=== PATIENT | female | born 1960 | race African-American/Black ===

== ENCOUNTER 2018-05-13 23:48 | Emergency (ER) | payer OTHER ==
[~2018-05-13] VITALS: Ht 170.2 cm; Wt 86.2 kg
[2018-05-14 00:21] VITALS: BP 127/87
--- NOTE | 2018-05-14 00:23 | NUR ---
ER Nurse Note: Pt BIBA from home c/o of rectal bleed and constipation since 05/12. Per pt, pt took enema eariler today, did not help. Pt a&ox4, VSS. Abdomen soft, round. Abd pain in the lower quadrants when palpated and with movement. Bowel sounds heard in quadrants. Will continue to montior.
--- NOTE | 2018-05-14 00:38 | Emergency Room Report ---
History of Present Illness General Chief Complaint: Gastrointestinal Illness Present Illness HPI Patient 57-year-old female with a history of oropharyngeal cancer status post radiation. Patient recently been having increased constipation and difficulty with stools. Patient had taken an enema and subsequently had increased bleeding. Patient had recently been on codeine due to increased discomfort to the area of radiation treatment. Allergies: Coded Allergies: No Known Allergies (Unverified , 05/13/18) Patient History Past Medical History: see triage record Last Menstrual Period: a decade ago Now: No Reviewed Nursing Documentation: PMH: Agreed; PSxH: Agreed Review of Systems All Other Systems: negative except mentioned in HPI Physical Exam Vital Signs Date Time Temp Pulse Resp B/P (MAP) Pulse Ox O2 Delivery O2 Flow Rate FiO2 05/13/18 23:45 98.2 86 18 127/87 98 Room Air Sp02 EP Interpretation: reviewed, normal General Appearance: normal inspection, well appearing, no apparent distress, alert, GCS 15 Head: atraumatic ENT: hearing grossly normal, other - 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 Neck: normal inspection, full range of motion, supple, no bony tend Respiratory: normal inspection, lungs clear, normal breath sounds, no respiratory distress, no retraction, no wheezing Cardiovascular #1: regular rate, rhythm, no edema Gastrointestinal: normal inspection, normal bowel sounds, non tender, soft, no guarding, no hernia Genitourinary: no CVA tenderness Musculoskeletal: normal inspection, back normal, normal range of motion Neurologic: normal inspection, alert, oriented x3, responsive, other - 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 Differential diagnosis include was not limited to foreign body, obstruction among others. Patient was noted to have prior history of cancer. She is given and along the emergency department. Patient was noted to have improvement in her symptoms and able to have a bowel movement in emergency department. Patient appears to be stable for Outpatient follow-up. Patient was advised to return if she had any worsening condition or other concerns. She was advised not to use her codeine- containing medications if these are making her constipated. Labs Test 05/14/18 00:35 White Blood Count 10.6 K/UL (4.8-10.8) Red Blood Count 4.45 M/UL (4.20-5.40) Hemoglobin 11.3 G/DL (12.0-16.0) Hematocrit 34.5 % (37.0-47.0) Mean Corpuscular Volume 77 FL (80-99) Mean Corpuscular Hemoglobin 25.5 PG (27.0-31.0) Mean Corpuscular Hemoglobin Concent 32.9 G/DL (32.0-36.0) Red Cell Distribution Width 15.1 % (11.6-14.8) Platelet Count 317 K/UL (150-450) Mean Platelet Volume 6.9 FL (6.5-10.1) Neutrophils (%) (Auto) % (45.0-75.0) Lymphocytes (%) (Auto) % (20.0-45.0) Monocytes (%) (Auto) % (1.0-10.0) Eosinophils (%) (Auto) % (0.0-3.0) Basophils (%) (Auto) % (0.0-2.0) Prothrombin Time 11.2 SEC (9.30-11.50) Prothromb Time International Ratio 1.1 (0.9-1.1) Activated Partial Thromboplast Time 28 SEC (23-33) Sodium Level 137 MMOL/L (136-145) Potassium Level 3.2 MMOL/L (3.5-5.1) Chloride Level 93 MMOL/L (98-107) Carbon Dioxide Level 35 MMOL/L (21-32) Anion Gap 9 mmol/L (5-15) Blood Urea Nitrogen 23 mg/dL (7-18) Creatinine 1.4 MG/DL (0.55-1.30) Estimat Glomerular Filtration Rate 46.9 mL/min (>60) Glucose Level 120 MG/DL (74-106) Calcium Level 9.9 MG/DL (8.5-10.1) Total Bilirubin 0.6 MG/DL (0.2-1.0) Aspartate Amino Transf (AST/SGOT) 49 U/L (15-37) Alanine Aminotransferase (ALT/SGPT) 64 U/L (12-78) Alkaline Phosphatase 73 U/L (46-116) Troponin I 0.000 ng/mL (0.000-0.056) Total Protein 7.7 G/DL (6.4-8.2) Albumin 3.6 G/DL (3.4-5.0) Globulin 4.1 g/dL Albumin/Globulin Ratio 0.9 (1.0-2.7) Last Vital Signs Date Time Temp Pulse Resp B/P (MAP) Pulse Ox O2 Delivery O2 Flow Rate FiO2 05/14/18 00:21 86 18 Room Air 05/14/18 00:21 98.2 127/87 98 Status: improved Disposition: HOME, SELF-CARE Condition: Stable Marlo Nichole MD May 14, 2018 00:38
[2018-05-14 00:54] LABS: HEMATOCRIT 34.5 % (37.0-47.0); HEMOGLOBIN 11.3 G/DL (12.0-16.0); MEAN CORPUSCULAR VOLUME 77 FL (80-99); PLATELET COUNT 317 K/UL (150-450); RED BLOOD COUNT 4.45 M/UL (4.20-5.40); RED CELL DISTRIBUTION WIDTH 15.1 % (11.6-14.8); WHITE BLOOD COUNT 10.6 K/UL (4.8-10.8)
[2018-05-14 01:02] LABS: ANION GAP 9 mmol/L (5-15); BLOOD UREA NITROGEN 23 mg/dL (7-18); CALCIUM 9.9 MG/DL (8.5-10.1); CARBON DIOXIDE 35 MMOL/L (21-32); CHLORIDE 93 MMOL/L (98-107); CREATININE 1.4 MG/DL (0.55-1.30); POTASSIUM 3.2 MMOL/L (3.5-5.1); SODIUM 137 MMOL/L (136-145)
[2018-05-14 01:09] LABS: INR 1.1 (0.9-1.1)
[2018-05-14 01:13] LABS: ALANINE AMINOTRANSFERASE 64 U/L (12-78); ALBUMIN 3.6 G/DL (3.4-5.0); ALBUMIN/GLOBULIN RATIO 0.9 (1.0-2.7); ALKALINE PHOSPHATASE 73 U/L (46-116); ASPARTATE AMINO TRANSFERASE 49 U/L (15-37); BILIRUBIN,TOTAL 0.6 MG/DL (0.2-1.0)
--- NOTE | 2018-05-14 02:00 | NUR ---
ER Nurse Note: Pt has abd pain, no BM. Pt a7Ox4, VSS, no signs of distress. Pt calm, cooperative. All orders completed per ERMD orders. Awaiting results; will continue to montior.
[2018-05-14 02:10] VITALS: BP 132/84
[2018-05-14] MEDS ORDERED: Fleet's Mineral Oil Enema RECTAL ONE (02:45)
[2018-05-14 04:53] VITALS: BP 122/82
--- NOTE | 2018-05-14 04:57 | NUR ---
ER Nurse Note: Pt seen, treated, medically cleared for discharge by ERMD. Discharge instructions and prescriptions given with repeat verbalization by pt. Instructed pt [facility] one week. Pt a&ox4, VSS, no signs of distress. Pt had 1 BM after enema; pt tolerated well. ID band removed, IV removed; site clean and bandaged. [facility].
--- NOTE | 2018-05-14 10:40 | Diagnostic Imaging Report ---
Indication: Abdominal pain for 3 days Technique: Spiral acquisitions obtained through the abdomen and pelvis. No oral contrast utilized, per emergency room physician request No IV contrast utilized, per referring physician request.. Multiplanar reconstructions were generated. Total dose length product 1020.16 mGycm. CTDIvol(s) 19.51 mGy. Dose reduction achieved using automated exposure control Comparison: None Findings: The appendix is normal. No evidence of diverticulosis or diverticulitis. No small bowel distention or small bowel wall thickening. No free or loculated intraperitoneal gas or fluid is evident. Distal esophagus, stomach, duodenum are unremarkable. There is mild distention of the rectum and with dense stool mild rectal wall thickening The liver, gallbladder, bile ducts, pancreas, spleen, right adrenal are unremarkable. The left adrenal demonstrates a 1.5 cm mass centrally, attenuation of which is approximately 0 Hounsfield units. The kidneys are unremarkable. No retroperitoneal or mesenteric mass or adenopathy. No pelvic mass or adenopathy. The uterus and adnexal structures are unremarkable. The included lung bases are clear. The bones demonstrate degenerative spondylosis changes. Impression: Mild distention of the rectum with dense stool. Rectal wall thickening may indicate stercoral proctitis No other acute abnormality 1.5 cm left adrenal mass, attenuation of which is consistent with benign adenoma. No further follow-up necessary Incidental finding of degenerative spondylosis This agrees with the preliminary interpretation provided overnight by [facility] service. The CT scanner at [facility] is accredited by the [place] [employer] and the scans are performed using protocols designed to limit radiation exposure to as low as reasonably achievable to attain images of sufficient resolution adequate for diagnostic evaluation.
== END 2018-05-14 04:59 | disposition home or self-care (01) ==
LOC: EDBD 23:48 → EMR 05-14 00:30
DX: K59.00 Constipation, unspecified (principal); C10.9 Malignant neoplasm of oropharynx, unspecified
CPT/HCPCS: 36415; 74176; 80053; 84484; 85025; 85610; 85730; 86850; 86900; 86901; 99284